=== PATIENT | male | born 1985 | race Caucasian/White ===

== ENCOUNTER 2021-05-28 10:46 | Emergency (ER) | payer BC, MEDICAID, OTHER ==
[2021-05-28 11:40] LABS: Bilirubin Neg (Negative); Blood, Urine 50 (Negative); Clarity Slightly Cloudy (Clear); Glucose, Urine (Dipstick) Normal (Negative); Ketone, Urine Negative (Negative); Leukocyte 500 (Negative); Nitrite Positive (Negative); Protein, Urine (Dipstick) 30 mg/dl (Neg-Trace); Urobilinogen Normal mg/dL (Less than 2)
[2021-05-28 11:47] LABS: Bacteria/HPF 2+ HPF (None Seen); WBC/HPF 21-50 HPF (0-3)
[2021-05-28] MEDS ORDERED: cefTRIAXone\\ROCEPHIN 1 GM VIAL ONE (12:16)
[2021-05-28] MEDS ORDERED: Lidocaine 1% (PF) 30 ML VIAL ONE (12:16)
== END 2021-05-28 12:22 | disposition home or self-care (01) ==
LOC: CSHERS 10:46
DX: N39.0 Urinary tract infection, site not specified (principal); F17.210 Nicotine dependence, cigarettes, uncomplicated
CPT/HCPCS: 81003; 81015; 87077; 87086; 87186; 99283; J0696; J2001